=== PATIENT | male | born 1965 | race Two or more races ===

== ENCOUNTER 2024-05-26 04:44 | Emergency (ER) | payer OTHER ==
[~2024-05-26] VITALS: Ht 180.3 cm; Wt 93.0 kg
[2024-05-26] MEDS ORDERED: IRBESARTAN150 MG PO (04:56)
[2024-05-26] MEDS ORDERED: KETOROLAC TROMETHAMINE 60 MG VIAL IM STA (05:40)
[2024-05-26] MEDS ORDERED: KETOROLAC TROMETHAMINE 60 MG VIAL IM ONE (05:54)
[2024-05-26] MEDS ORDERED: MELOXICAM15 MG PO (06:09)
== END 2024-05-26 06:45 | disposition home or self-care (01) ==
LOC: ER 04:46
DX: R07.89 Other chest pain (principal); I10 Essential (primary) hypertension